=== PATIENT | male | born 1985 | race Caucasian/White ===

== ENCOUNTER 2018-03-06 12:39 | Emergency (ER) | payer BC ==
[~2018-03-06] VITALS: Ht 177.8 cm; Wt 72.6 kg
[2018-03-06] MEDS ORDERED: UNICOMPLEX M TA1 TA1 PO (12:48)
[2018-03-06] MEDS ORDERED: NAPROSYN500 MG PO (14:23)
[2018-03-06 14:38] VITALS: BP 100/67
== END 2018-03-06 14:38 | disposition home or self-care (01) ==
LOC: ER 12:39
DX: M79.651 Pain in right thigh (principal)